=== PATIENT | male | born 1940 | race Two or more races ===

== ENCOUNTER 2021-07-16 17:00 | Emergency (ER) | payer SELFPAY ==
[~2021-07-16 17:00] MED LIST: epiNEPHrine 0.1mg/ml 10ml syringe ONE; sodium bicarbonate (8.4%) 1 mEq/ml syringe ONE
--- NOTE | 2021-07-16 17:25 | NUR ---
PT ARRIVED WITH EMS AT 1701; CPR IN PROGRESS. PT IS INTUBATED AND AN IO IS IN PT'S LLL. PER EMS PT HAD A WITNESSED ARREST, 911 WAS CALLED AND CPR WAS STARTED BY WITNESSES. FIRE ARRIVED AT 1627, AED ADVISED NO SHOCK NEEDED AND RESCUE BREATHING WAS BEING PERFORMED. EMS ARRIVED, PT HAD NOTED PULSES FOR APPROXMATELY 3 MIN. PT WENT PULSLESS, CPR STARTED,PT WAS SHOCKED x1, RECEIVED A TOTAL OF 5 MG EPI AND 300MG AMIODARONE. PT HAD PULSES AND THEN WENT PULSLESS, CPR STATED, WENT INTO VTACH AND THEN PERISTANT PEA 1704: PT WAS PLACED IN ER 5, CPR WAS CONTINUED, 1 AMP OF BICARB PUSHED VIA IO BY DR DENG 1705: 1MG EIP PUSHED VIA IO 1707: PULSE CHECK, PEA CODE CALLED WITH TOD [address] DENG
--- NOTE | 2021-07-16 17:48 | NUR ---
[facility] [phone]
== END 2021-07-17 05:22 ==
LOC: ER 17:02
DX: I46.9 Cardiac arrest, cause unspecified (principal); R07.89 Other chest pain; R06.02 Shortness of breath; I25.10 Atherosclerotic heart disease of native coronary artery without angina pectoris; J44.9 Chronic obstructive pulmonary disease, unspecified; E03.9 Hypothyroidism, unspecified
CPT/HCPCS: 92950; 99285; J0171; J3490